=== PATIENT | female | born 1990 | race Caucasian/White ===

== ENCOUNTER 2020-04-12 13:37 | Outpatient (REF) | payer OTHER, SELFPAY ==
--- NOTE | 2020-04-12 13:00 | PAPFT_PTH ---
PATIENT: Sue Gracia LOC: [facility] U#:[id number] AGE/SX: 29/F ROOM: RE04/12/[address]: JULIO Chandler : 1990 BED: DIS: 04/12/2020 SPEC #: [id number] RECD: 04/12/20 17:40 STATUS: GENE REQ #: [id number] LUCRETIA: 04/12/20 13:[address]: Rossi Forman DEPT: [facility] Cytology RECD BY: Judy Johnson ENTERED: 04/12/20 17:41 SP TYPE: PAPFT OTHR DR: Jennifer Fenton Tissues: 1 - CX/ENDOCX FOR PAP SMEARS Procedures: PAP THIN PREP/[facility] Screening HPV DNA PROBE Comments: [id number]
[2020-04-13 15:21] LABS: Chlamydia Result Negative (Negative); GC Result Negative (Negative)
== END 2020-04-12 13:57 ==
LOC: LBN 13:37
PROVIDERS: PCP Family Medicine; Visit Provider Nurse Practitioner Family
DX: Z12.4 Encounter for screening for malignant neoplasm of cervix (principal); Z11.51 Encounter for screening for human papillomavirus (HPV); Z97.5 Presence of (intrauterine) contraceptive device; Z87.410 Personal history of cervical dysplasia; Z11.3 Encounter for screening for infections with a predominantly sexual mode of transmission
CPT/HCPCS: 87491; 87591; 88142; 87624

== ENCOUNTER 2022-09-08 12:36 | Outpatient (REF) | payer OTHER, SELFPAY ==
--- NOTE | 2022-09-08 11:30 | PAPFT_PTH ---
PATIENT: Sue Gracia LOC: [facility] U#:[id number] AGE/SX: 31/F ROOM: RE09/08/[address]: Millicent Larios NP : 1990 BED: DIS: 09/08/2022 SPEC #: [id number] RECD: 09/08/22 13:07 STATUS: GENE REFlavio #: [id number] LUCRETIA: 09/08/22 11:[address]: Harriet CHANEL,Millicent DEPT: [facility] Cytology RECD BY: Judy Johnson ENTERED: 09/08/22 13:07 SP TYPE: PAPFT OTHR DR: Jennifer Fenton Tissues: 1 - CX/ENDOCX FOR PAP SMEARS Procedures: PAP THIN PREP/[facility] Screening HPV DNA PROBE Comments: [id number] (CHLAMYDIA/GC)
[2022-09-09 13:23] LABS: Chlamydia Result Negative (Negative); GC Result Negative (Negative)
== END 2022-09-08 12:37 | disposition home or self-care (01) ==
LOC: LBN 12:36
PROVIDERS: PCP Family Medicine; Visit Provider Nurse Practitioner Women's Health
DX: N76.0 Acute vaginitis (principal); Z11.3 Encounter for screening for infections with a predominantly sexual mode of transmission; Z12.4 Encounter for screening for malignant neoplasm of cervix; Z11.51 Encounter for screening for human papillomavirus (HPV); Z87.410 Personal history of cervical dysplasia
CPT/HCPCS: 87491; 87591; 88142; 87480; 87510; 87624; 87660

== ENCOUNTER 2023-09-22 09:09 | Outpatient (CLI) | payer OTHER, SELFPAY ==
[2023-09-22 10:55] LABS: Anion Gap 10.8 mmol/L (3-11); BUN 12 mg/dL (7-18); CO2 25.2 mmol/L (21.0-32.0); CREATININE 0.8 mg/dL (0.55-1.02); Chloride 105 mmol/L (98-107); Estimated GFR 99.09 (mL/min/1.73m2); Glucose 116 mg/dL (74-106); Potassium 3.5 mmol/L (3.5-5.1); Sodium 141 mmol/L (136-145); TSH 1.45 uIU/Ml (0.36-3.74)
== END 2023-09-22 09:10 | disposition home or self-care (01) ==
PROVIDERS: PCP Family Medicine; Visit Provider Nurse Practitioner Psychiatric/Mental Health
DX: F39 Unspecified mood [affective] disorder (principal); Z51.81 Encounter for therapeutic drug level monitoring
CPT/HCPCS: 36415; 80048; 82306; 84443

== ENCOUNTER 2025-06-20 13:58 | Outpatient (REF) | payer OTHER, SELFPAY ==
[2025-06-20 18:48] LABS: Hemoglobin A1C 4.9 % (<5.7)
[2025-06-20 18:56] LABS: Cholesterol 159 mg/dL (<200); HDL Cholesterol 62 mg/dL (>or=50)
[2025-06-27 12:12] LABS: 25-Hydroxy D Total 24 ng/mL
== END 2025-06-20 13:59 | disposition home or self-care (01) ==
LOC: NCHCN 13:58
PROVIDERS: PCP Family Medicine
DX: Z13.220 Encounter for screening for lipoid disorders (principal); Z13.1 Encounter for screening for diabetes mellitus; E55.9 Vitamin D deficiency, unspecified
CPT/HCPCS: 80061; 82306; 83036